=== PATIENT | female | born 1960 | race Caucasian/White ===

== ENCOUNTER 2018-06-18 11:20 | Emergency (ER) | payer OTHER ==
[~2018-06-18] VITALS: Ht 172.7 cm; Wt 109.0 kg
[~2018-06-18 11:20] MED LIST: GABA100C PO
--- NOTE | 2018-06-18 11:24 | NUR ---
PT BIBA ALS TO ER BED 05 Addendum: 06/18/18 at 2108 by STEPHANIE Amendment susan in ED - 06/18/18 at [address] FREIRE SPEAKING WITH PT VIA REMOTE COMMUNICATION
--- NOTE | 2018-06-18 11:30 | NUR ---
PT BIB AMBULANCE TO THE ED WITH THE CHIEF C/O SUICIDAL IDEATION, 5150. + ETOH. PER AMBULANCE PERSON, PT WAS HARRASHING FAMILY MEMBER, STATED SHE WANYS TO HURT HERSELF. FAMILY CALLED POLICE. [place] [employer] IN CASE. PER AMBULANCE PERSONNEL, PT IS NOT TAKING ANY MEDS AT HOME. JANENE, SEVERIANOT
[2018-06-18 11:31] VITALS: BP_SYST 163; BP_SYST 168; BP_DIAS 127; BP_DIAS 98
[2018-06-18] MEDS ORDERED: NACL 0.9% 1,000 ML IV ONE (11:51)
[2018-06-18] MEDS ORDERED: LORazepam 2 MG/ML VIAL IM ONE (11:55)
[2018-06-18] MEDS ORDERED: diphenhydrAMINE 50 MG/ML VIAL IM ONE (11:55)
[2018-06-18] MEDS ORDERED: HALOPERIDOL IM 5 MG/ML VIAL IM ONE (11:55)
[2018-06-18 12:56] LABS: BASOPHILS % (AUTO) 0.4 % (0.0-2.0); EOSINOPHILS # (AUTO) 0.1 K/uL (0-0.4); EOSINOPHILS % (AUTO) 1.4 % (0.0-4.0); HEMOGLOBIN 15.6 g/dL (12.0-16.0); LYMPHOCYTES # (AUTO) 3.3 K/uL (2.5-16.5); LYMPHOCYTES % (AUTO) 38.6 % (20.5-51.1); MEAN CORPUSCULAR HEMOGLOBIN 31 pg (27-31); MEAN CORPUSCULAR HGB CONC 35 g/dL (33-37); MEAN CORPUSCULAR VOLUME 88.6 fL (80-94); MONOCYTES # (AUTO) 0.5 K/uL (0.8-1.0); MONOCYTES % (AUTO) 6.3 % (1.7-9.3); NEUTROPHILS # (AUTO) 4.6 K/uL (1.8-7.7); NEUTROPHILS % (AUTO) 53.3 % (42.2-75.2); PLATELET COUNT (AUTO) 254 K/uL (140-450); RED BLOOD CELL COUNT(AUTO) 5.08 MIL/uL (4.20-5.40); RED CELL DISTRIBUTION WIDTH 13.4 % (11.6-13.7); WHITE BLOOD COUNT (AUTO) 8.6 K/uL (4.8-10.8)
--- NOTE | 2018-06-18 13:08 | NUR ---
PT CALM, SEDATED.
--- NOTE | 2018-06-18 13:09 | NUR ---
PT TOO SEDATED TO DO PO CHALLENGE.
[2018-06-18] MEDS ORDERED: DEXTROSE 50% 50 ML SYR IVP ONE (13:55)
--- NOTE | 2018-06-18 14:00 | NUR ---
CONTINUE ON 1:1 SITTER.
[2018-06-18 14:15] LABS: APPEARANCE,URINE HAZY (CLEAR); BILIRUBIN,URINE NEGATIVE (NEGATIVE); BLOOD, URINE NEGATIVE (NEGATIVE); COLOR,URINE YELLOW (YELLOW); LEUKOCYTE ESTERASE ,URINE NEGATIVE (NEGATIVE); NITRITE, URINE NEGATIVE (NEGATIVE); UGLUCOSE NEGATIVE (NEGATIVE)
[2018-06-18 14:36] LABS: BARBITURATE, URINE NEG. ng/ml (NEG <=200); BENZODIAZEPINE, URINE NEG. ng/mL (NEG <=200); CANNABINOID, URINE POS. ng/mL (NEG <=50); COCAINE, URINE NEG. ng/mL (NEG <=300); OPIATE, URINE NEG. ng/mL (NEG <=2000); PHENCYCLIDINE SCREEN,URINE NEG. ng/mL (NEG <=25)
[2018-06-18 17:36] LABS: ALBUMIN 3.9 g/dL (3.4-5.0); ANION GAP 24.5 (8-16); ASPARTATE AMINOTRANSFERASE 17 U/L (15-37); CARBON DIOXIDE 17.7 mmol/L (21-32); CHLORIDE 107 mmol/L (98-107); CREATININE 0.9 mg/dL (0.6-1.3); GFR ARICAN-AMERICAN 83 mL/min (>90); GLUCOSE 88 mg/dL (74-106); POTASSIUM 3.2 mmol/L (3.5-5.1); SALICYLATE < 2.8 mg/dL (2.8-20.0); SODIUM SERUM 146 mmol/L (136-145); TOTAL BILIRUBIN 0.5 mg/dL (0.0-1.0); UREA NITROGEN, BLOOD 13 mg/dL (7-18)
--- NOTE | 2018-06-18 17:50 | NUR ---
SLEEPING AT THIS TIME.
--- NOTE | 2018-06-18 18:14 | NUR ---
PT AWAKE. A/O X4. AMBULATED TO RESTROOM. ASSISTED NEEDED.
--- NOTE | 2018-06-18 18:16 | NUR ---
TELEPSYCH INITIATED PER DR. DONNELLY
--- NOTE | 2018-06-18 18:17 | NUR ---
SITTING IN BED, EATING AT THIS TIME.
--- NOTE | 2018-06-18 19:20 | NUR ---
REPROT GIVEN TO DIET CONSULTANT RN FOR CONTINUITY OF CARE.
--- NOTE | 2018-06-18 19:21 | NUR ---
RECEIVED REPORT FROM AM SHIFT. WILL CONTINUE CONTINUITY OF CARE.
[2018-06-18 20:43] VITALS: BP 122/59
--- NOTE | 2018-06-18 21:05 | NUR ---
TELEPSYCH DR. FRERIE SPEAKING WITH BRANNON DEE
--- NOTE | 2018-06-18 21:08 | NUR ---
TELEPSYCH DR. FREIRE SPEAKING WITH PT VIA REMOTE COMMUNICATION
--- NOTE | 2018-06-18 21:28 | NUR ---
Melida davis in [facility] - 06/18/18 at [address] FREIRE SPEAKING WITH PT VIA REMOTE COMMUNICATION
--- NOTE | 2018-06-18 21:31 | NUR ---
TELEPSYCH DOCTOR SPOKE WITH BRANNON DEE
--- NOTE | 2018-06-18 22:05 | NUR ---
Patient discharged with v/s stable. Written and verbal after care instructions given and explained. Patient verbalized understanding. Ambulatory with steady gait. All questions addressed prior to discharge. Advised to follow up with PMD.
--- NOTE | 2018-06-21 09:23 | NUR ---
Late entry. Confirmed with RN that 0.9 NS at 100 ml/hr infused until 2200
--- NOTE | 2018-06-21 09:24 | NUR ---
Late entry. Reeval time for 0.9 NS that started at 1502 was 1526.
== END 2018-06-18 22:05 | disposition home or self-care (01) ==
LOC: MED 11:20
DX: F10.129 Alcohol abuse with intoxication, unspecified (principal); R45.1 Restlessness and agitation; F23 Brief psychotic disorder; F12.10 Cannabis abuse, uncomplicated; F15.10 Other stimulant abuse, uncomplicated; R45.851 Suicidal ideations; G40.909 Epilepsy, unspecified, not intractable, without status epilepticus; I10 Essential (primary) hypertension; Z88.1 Allergy status to other antibiotic agents; Z79.899 Other long term (current) drug therapy; Z02.89 Encounter for other administrative examinations
CPT/HCPCS: 36415; 71045; 80053; 80305; 81003; 82550; 84484; 85025; 96372; 96374; 99285; G0480; G0482; J1200; J1630; J2060; J7030; Q0092

== ENCOUNTER 2019-01-19 09:35 | Emergency (ER) | payer SELFPAY ==
[~2019-01-19] VITALS: Ht 165.1 cm; Wt 68.0 kg
[2019-01-19 09:41] VITALS: BP 139/97
[2019-01-19] MEDS ORDERED: IBUPROFEN 600 MG TAB PO ONE (10:00)
[2019-01-19 10:48] VITALS: BP 139/97
== END 2019-01-19 10:48 | disposition home or self-care (01) ==
LOC: MED 09:35
DX: S93.401A Sprain of unspecified ligament of right ankle, initial encounter (principal); I10 Essential (primary) hypertension; Z86.69 Personal history of other diseases of the nervous system and sense organs; Z79.899 Other long term (current) drug therapy; Z88.1 Allergy status to other antibiotic agents; W18.39XA Other fall on same level, initial encounter; Y92.89 Other specified places as the place of occurrence of the external cause; Y93.89 Activity, other specified; Y99.8 Other external cause status
CPT/HCPCS: 73610; 73630; 99283

== ENCOUNTER 2019-08-16 23:55 | Emergency (ER) | payer SELFPAY ==
[~2019-08-16] VITALS: Ht 167.6 cm; Wt 77.1 kg
--- NOTE | 2019-08-17 | NUR ---
PT TRANSPORTED TO BED 9 VIA [facility].
[2019-08-17 00:06] VITALS: BP 148/88
--- NOTE | 2019-08-17 00:15 | NUR ---
PT STARTED ON FLAGYL IVPB ON RT AC. TOLERATED WELL NADR
[2019-08-17] MEDS ORDERED: metroNIDAZOLE 500 MG/NS PREMIX 100 ML IV ONE (00:30)
[2019-08-17] MEDS ORDERED: LEVOFLOXACIN 500 MG/D5W PREMIX 100 ML IV ONE (00:30)
--- NOTE | 2019-08-17 00:41 | NUR ---
PER PT THEY CANNOT GIVE ANY URINE AT THIS TIME. STATES " I DO NOT HAVE TO GO RIGHT NOW"
--- NOTE | 2019-08-17 00:42 | NUR ---
PT PLACED ON 3L N/C FOR SATS OF 90-92%
--- NOTE | 2019-08-17 00:42 | NUR ---
PER PT, " I DO NOT WANT TO PUT ON A GOWN, I'D RATHER NOT"
--- NOTE | 2019-08-17 00:55 | NUR ---
59F PRESENTS TO ED VIA AMBULANCE C/O FEVER, COUGH, N/V/D X 1 WEEK. pt states that niece presents with the same symptoms and has been tested here at [facility]. has not gotten the results back. family at home presents with same symptoms as the pt. bowel sounds hyperactive, abdoment soft and non-tender. pt states having one episode of epilepsy x today. pmhx: epilepsy, HTN, appendectomy, btl, cholecystectomy, ovarian cyst allx: erythromycin
[2019-08-17 00:59] LABS: BASOPHILS % (AUTO) 0.6 % (0.0-2.0); HEMATOCRIT 43.6 % (36-48); HEMOGLOBIN 15.1 g/dL (12.0-16.0); LYMPHOCYTES # (AUTO) 1.2 K/uL (2.5-16.5); LYMPHOCYTES % (AUTO) 21.7 % (20.5-51.1); MEAN CORPUSCULAR HEMOGLOBIN 31 pg (27-31); MEAN CORPUSCULAR HGB CONC 35 g/dL (33-37); MEAN CORPUSCULAR VOLUME 88.3 fL (80-94); MONOCYTES # (AUTO) 0.5 K/uL (0.8-1.0); MONOCYTES % (AUTO) 8.6 % (1.7-9.3); NEUTROPHILS # (AUTO) 3.9 K/uL (1.8-7.7); NEUTROPHILS % (AUTO) 69.1 % (42.2-75.2); PLATELET COUNT (AUTO) 182 K/uL (140-450); RED BLOOD CELL COUNT(AUTO) 4.94 MIL/uL (4.20-5.40); RED CELL DISTRIBUTION WIDTH 12.4 % (11.6-13.7); WHITE BLOOD COUNT (AUTO) 5.6 K/uL (4.8-10.8)
[2019-08-17 01:13] LABS: BILIRUBIN,URINE 1+ (NEGATIVE); BLOOD, URINE NEGATIVE (NEGATIVE); COLOR,URINE YELLOW (YELLOW); LEUKOCYTE ESTERASE ,URINE NEGATIVE (NEGATIVE); NITRITE, URINE POSITIVE (NEGATIVE); UGLUCOSE NEGATIVE (NEGATIVE)
[2019-08-17 01:17] LABS: ALBUMIN 3.3 g/dL (3.4-5.0); ANION GAP 14.1 (8-16); CARBON DIOXIDE 28.5 mmol/L (21-32); TOTAL BILIRUBIN 0.7 mg/dL (0.0-1.0)
[2019-08-17 01:19] LABS: POTASSIUM 2.6 mmol/L (3.5-5.1)
[2019-08-17] MEDS ORDERED: POTASSIUM CHLORIDE 10 MEQ TABER PO ONE ×2 (01:21→01:30)
[2019-08-17 01:31] LABS: APPEARANCE,URINE HAZY (CLEAR)
[2019-08-17 01:32] LABS: RBC,URINE 0-5 /HPF (0-5)
--- NOTE | 2019-08-17 01:35 | NUR ---
PT STARTED ON LEVAQUINN IVPB ON LT AC TOLERATED WELL. NADR
--- NOTE | 2019-08-17 01:47 | NUR ---
CRITICAL LAB VALUE POTASSIUM 2.6. DR CHANEY NOTIFIED. ADVISED 40MEQ KDUR
--- NOTE | 2019-08-17 01:59 | NUR ---
gave pt's son a call for rock picker when pt is d/c name: giovanni number: son states they live 2 miles away
--- NOTE | 2019-08-17 02:00 | NUR ---
flagyl infusion finished. nadr
[2019-08-17 02:21] VITALS: BP 148/88
--- NOTE | 2019-08-17 02:21 | NUR ---
Patient discharged with v/s stable. Written and verbal after care instructions given and explained. Patient alert, oriented and verbalized understanding of instructions. Ambulatory with steady gait. All questions addressed prior to discharge. ID band removed. Patient advised to follow up with PMD. Rx of CIPROFLOXACIN given. Patient educated on indication of medication including possible reaction and side effects. Opportunity to ask questions provided and answered.
--- NOTE | 2019-08-19 16:10 | NUR ---
CALLED AND SPOKE WITH HOLLEY (PATIENT) [phone] INSTRUCTED HER THAT SHE IS TO BE STARTED ON ANOTHER PRESCRIPTION IN ADDITION TO HER CURRENT ANTIBIOTICS
--- NOTE | 2019-08-19 16:20 | NUR ---
PRESCRIPTION CALLED TO [facility] [phone] BACTRIM DS 1 TAB PO BID X 7 DAYS
== END 2019-08-17 02:21 | disposition home or self-care (01) ==
LOC: MED 23:55
DX: K52.9 Noninfective gastroenteritis and colitis, unspecified (principal); N39.0 Urinary tract infection, site not specified; I10 Essential (primary) hypertension; F17.200 Nicotine dependence, unspecified, uncomplicated; Z88.1 Allergy status to other antibiotic agents; Z79.899 Other long term (current) drug therapy
CPT/HCPCS: 36415; 80053; 81001; 82150; 83690; 85025; 87086; 87186; 96365; 96366; 96368; 99284; J1956; J3490

== ENCOUNTER 2019-08-18 13:41 | Emergency (ER) | payer MEDICAID, SELFPAY ==
[~2019-08-18] VITALS: Ht 172.7 cm; Wt 77.1 kg
[2019-08-18 14:10] VITALS: BP 117/73
--- NOTE | 2019-08-18 14:11 | NUR ---
PT AMBULATED TO BED.
--- NOTE | 2019-08-18 14:16 | NUR ---
C/O FLANK PAIN, CHEST PAIN, BODY ACHES, NAUSEA. PT STATES SHE CAME HERE [facility] AND WAS GIVEN ANTIBX (SHE DOES NOT KNOW WHY) AND STATES "I DONT FEEL ANY BETTER". PT AWAKE , ALERT, AFIBRILE, DENIES N/V .
--- NOTE | 2019-08-18 14:33 | NUR ---
Dr. La evaluating pt at bedside
[2019-08-18] MEDS ORDERED: KETOROLAC 30 MG/ML VIAL IVP ONE (14:35)
[2019-08-18] MEDS ORDERED: NACL 0.9% 1,000 ML IV ONE (14:35)
--- NOTE | 2019-08-18 14:35 | NUR ---
DR FORD AT BEDSIDE EVALUATING PT.
[2019-08-18 15:08] LABS: BASOPHILS % (AUTO) 0.5 % (0.0-2.0); EOSINOPHILS % (AUTO) 0.1 % (0.0-4.0); HEMATOCRIT 46.3 % (36-48); HEMOGLOBIN 15.9 g/dL (12.0-16.0); LYMPHOCYTES # (AUTO) 1.2 K/uL (2.5-16.5); LYMPHOCYTES % (AUTO) 20.2 % (20.5-51.1); MEAN CORPUSCULAR HEMOGLOBIN 31 pg (27-31); MEAN CORPUSCULAR HGB CONC 35 g/dL (33-37); MEAN CORPUSCULAR VOLUME 88.4 fL (80-94); MONOCYTES # (AUTO) 0.5 K/uL (0.8-1.0); NEUTROPHILS # (AUTO) 4.4 K/uL (1.8-7.7); NEUTROPHILS % (AUTO) 71.2 % (42.2-75.2); PLATELET COUNT (AUTO) 211 K/uL (140-450); RED BLOOD CELL COUNT(AUTO) 5.23 MIL/uL (4.20-5.40); RED CELL DISTRIBUTION WIDTH 12.6 % (11.6-13.7); WHITE BLOOD COUNT (AUTO) 6.2 K/uL (4.8-10.8)
--- NOTE | 2019-08-18 15:14 | NUR ---
pt to ctscan via wheel chair.
--- NOTE | 2019-08-18 15:19 | NUR ---
pt back from ct scan via wheelchair.
[2019-08-18 15:27] LABS: ALBUMIN 3.3 g/dL (3.4-5.0); ANION GAP 10.2 (8-16); CARBON DIOXIDE 31.9 mmol/L (21-32); CREATININE 1.2 mg/dL (0.6-1.3); POTASSIUM 3.1 mmol/L (3.5-5.1); TOTAL BILIRUBIN 0.9 mg/dL (0.0-1.0)
[2019-08-18 15:30] LABS: APPEARANCE,URINE HAZY (CLEAR); BILIRUBIN,URINE 1+ (NEGATIVE); BLOOD, URINE NEGATIVE (NEGATIVE); COLOR,URINE YELLOW (YELLOW); LEUKOCYTE ESTERASE ,URINE NEGATIVE (NEGATIVE); NITRITE, URINE NEGATIVE (NEGATIVE); UGLUCOSE NEGATIVE (NEGATIVE)
[2019-08-18 15:43] LABS: BARBITURATE, URINE NEGATIVE ng/ml (NEG <=200); BENZODIAZEPINE, URINE NEGATIVE ng/mL (NEG <=200); CANNABINOID, URINE POSITIVE ng/mL (NEG <=50); COCAINE, URINE NEGATIVE ng/mL (NEG <=300); OPIATE, URINE NEGATIVE ng/mL (NEG <=2000); PHENCYCLIDINE SCREEN,URINE NEGATIVE ng/mL (NEG <=25)
[2019-08-18] MEDS ORDERED: PIPERACILLIN/TAZOBACTAM 3.375 GM in DEXTROSE 5% 50 ML IV ONE (15:45)
[2019-08-18] MEDS ORDERED: PIPERACILLIN/TAZOBACTAM 3.375 GM VIAL IV ONE (15:48)
[2019-08-18] MEDS ORDERED: POTASSIUM CHLORIDE 10 MEQ TABER PO ONE (16:10)
--- NOTE | 2019-08-18 16:10 | NUR ---
COVID 19 SWAB AND INFLUENZA A AND B DONE. DR FORD INFORMEDE AND AWARE.
--- NOTE | 2019-08-18 16:15 | NUR ---
Melida davis in [facility] - 08/18/19 at 1623 by MEDCRUZ BRANNON FERNANDESS.
--- NOTE | 2019-08-18 16:15 | NUR ---
BRANNON FOX ADMINISTERED MEDS.
--- NOTE | 2019-08-18 17:40 | NUR ---
Patient discharged with v/s stable. Written and verbal after care instructions given and explained regarding pneumonia . Patient alert, oriented and verbalized understanding of instructions. Ambulatory with steady gait. All questions addressed prior to discharge. ID band removed. Patient advised to follow up with PMD. Rx of azithromycin given. Patient educated on indication of medication including possible reaction and side effects. Opportunity to ask questions provided and answered.
[2019-08-18 17:42] VITALS: BP 120/75
--- NOTE | 2019-08-20 21:00 | NUR ---
RECIEVED CALL FROM THE LAB, PT IS POSITIVE FOR COV2- ERMD DR FRENCH MADE AWARE AND HE DID SIGN THE RESULT. PT COVID RESULT WILL FORWARD TO THE MANAGER PACKAGING AND TAMMY GUTHRIE.
== END 2019-08-18 17:40 | disposition home or self-care (01) ==
LOC: EEVIPCON 13:41 → MED 13:41
DX: J18.9 Pneumonia, unspecified organism (principal); E87.6 Hypokalemia; F19.10 Other psychoactive substance abuse, uncomplicated; I10 Essential (primary) hypertension; R56.9 Unspecified convulsions; Z88.1 Allergy status to other antibiotic agents; Z79.899 Other long term (current) drug therapy; Z20.828 Contact with and (suspected) exposure to other viral communicable diseases
CPT/HCPCS: 36415; 71045; 74176; 80053; 80305; 81003; 83605; 83690; 83880; 84484; 85025; 87040; 87086; 87804; 93005; 96365; 96375; 99285; C9803; J1885; J2543; J7030; U0003

== ENCOUNTER 2019-08-23 14:32 | Inpatient (IN) | payer MEDICAID, SELFPAY ==
[~2019-08-23] VITALS: Ht 167.6 cm; Wt 68.5 kg
[2019-08-23 14:35] VITALS: BP 122/90
--- NOTE | 2019-08-23 15:10 | NUR ---
59 Y/O F BIBA FROM HOME C/C SOB/HEADACHE X 3 DAYS. PER PT SOB PROGRESSIVELY WORSE WITH MOVEMENT, AND ALLEVIATING WITH REST, PT 93% RA AT REST WITH NORMAL TIDAL VOLUME, SHALLOW RESPIRATIONS, EUPNIC, NO RESPIRATORY DISTRESS NOTED, MENTATION A/OX4, CLEAR SPEECH. PER PT "DIFFICULTY GASPING FOR AIR, CATCH MY BREATH". PT COVID POSITIVE CONFIRMED. PT PLACED ON 4L NC, 100%SPO2. ALLERGIES ERYTHROMYCIN. HX EPILEPSY,HTN. PT NON COMPLIANT WITH MEDICATIONS, PER PT "DOES NOT LIKE TAKING PILLS". DENIES NVD. SIDE RAIL X2.
--- NOTE | 2019-08-23 15:10 | NUR ---
[facility] FOLLOWED PT ENTERED ER WITH MASK PT PLACED IN ISOLATION COVID ROOM COVID SIGN / SIGN IN SHEET AT BEDSIDE RN FULL PPE
--- NOTE | 2019-08-23 15:22 | NUR ---
RT AT BEDSIDE
--- NOTE | 2019-08-23 15:22 | NUR ---
RAD AT BEDSIDE
--- NOTE | 2019-08-23 15:22 | NUR ---
LAB AT BEDSIDE
--- NOTE | 2019-08-23 15:49 | NUR ---
PT RESTING IN BED, NO RESPIRATORY DISTRESS. PT EUPNIC. SIDE RAIL X2.
--- NOTE | 2019-08-23 16:00 | NUR ---
PT UNABLE TO PROVIDE URINE AT THIS TIME PER PT WENT TO RESTROOM BEFORE COMING TO ER PROVIDED GARRICK SANABRIA
[2019-08-23 16:03] LABS: BASOPHILS % (AUTO) 0.5 % (0.0-2.0); EOSINOPHILS # (AUTO) 0.2 K/uL (0-0.4); EOSINOPHILS % (AUTO) 2.4 % (0.0-4.0); HEMATOCRIT 41.2 % (36-48); HEMOGLOBIN 14.3 g/dL (12.0-16.0); LYMPHOCYTES # (AUTO) 1.5 K/uL (2.5-16.5); LYMPHOCYTES % (AUTO) 22.9 % (20.5-51.1); MEAN CORPUSCULAR HEMOGLOBIN 30 pg (27-31); MEAN CORPUSCULAR HGB CONC 35 g/dL (33-37); MEAN CORPUSCULAR VOLUME 87.4 fL (80-94); MONOCYTES # (AUTO) 0.7 K/uL (0.8-1.0); MONOCYTES % (AUTO) 10.5 % (1.7-9.3); NEUTROPHILS # (AUTO) 4.2 K/uL (1.8-7.7); NEUTROPHILS % (AUTO) 63.7 % (42.2-75.2); PLATELET COUNT (AUTO) 320 K/uL (140-450); RED BLOOD CELL COUNT(AUTO) 4.72 MIL/uL (4.20-5.40); RED CELL DISTRIBUTION WIDTH 12.4 % (11.6-13.7); WHITE BLOOD COUNT (AUTO) 6.6 K/uL (4.8-10.8)
--- NOTE | 2019-08-23 16:21 | NUR ---
PT RESTING IN BED, SIDE RAIL X2
[2019-08-23 16:22] LABS: PROTHROMBIN TIME 10.5 secs (10.8-13.4)
[2019-08-23 16:23] LABS: ALBUMIN 2.8 g/dL (3.4-5.0); ANION GAP 11.1 (8-16); CARBON DIOXIDE 25.4 mmol/L (21-32); CREATININE 0.9 mg/dL (0.6-1.3); POTASSIUM 3.5 mmol/L (3.5-5.1); TOTAL BILIRUBIN 0.8 mg/dL (0.0-1.0)
[2019-08-23] MEDS ORDERED: PIPERACILLIN/TAZOBACTAM 3.375 GM in DEXTROSE 5% 50 ML IV ONE (16:30)
[2019-08-23] MEDS ORDERED: PIPERACILLIN/TAZOBACTAM 3.375 GM VIAL IV ONE (16:32)
[2019-08-23] MEDS ORDERED: ACETAMINOPHEN 325 MG TAB PO PRN (16:50)
[2019-08-23] MEDS ORDERED: ONDANSETRON 4 MG/2 ML VIAL IM/IVP PRN (16:50)
[2019-08-23] MEDS ORDERED: DOCUSATE SODIUM 100 MG GELCAP PO PRN (16:50)
[2019-08-23] MEDS ORDERED: MORPHINE SULFATE 2 MG/ML SYR IVP PRN (16:50)
[2019-08-23] MEDS ORDERED: HYDROcodone/APAP 7.5/325 MG 1 TAB PO PRN (16:50)
[2019-08-23] MEDS ORDERED: ALBUTEROL HFA MDI 90 MCG/ACTUATION 8 GM INH PRN (16:55)
[2019-08-23 17:36] LABS: PHOSPHORUS 3.4 mg/dL (2.5-4.9); THYROID STIMULATING HORMONE 0.91 uIU/mL (0.34-3.74)
--- NOTE | 2019-08-23 17:43 | NUR ---
URINE COLLECTED ; PLACED IN RED BOX IN DIRTY UTILITY ROOM
--- NOTE | 2019-08-23 17:45 | NUR ---
SPOKE TO PHARMACIST SHEILA IN REGARDS OF PT REACTION TO ERYTHROMYCIN: N/V
--- NOTE | 2019-08-23 17:47 | NUR ---
NAME OF SON: VILLA HERNANDEZ PHONE: [phone]
--- NOTE | 2019-08-23 18:10 | NUR ---
RECEIVED PT FROM THE ED RNPANCHO. PT IS AAOX4, SPEAKS SAO TOMEAN, ABLE TO MAKE NEEDS KNOWN. PT IS AWAKE AND ALERT, SITTING IN BED WITH NO SIGN AND SYMPTOMS OF ACUTE DISTRESS. RESPIRATION EVEN AND NONLABORED ON RA. PT HAS IV ACCESS AT LEFT HAND 20 GAUGE, SALINE LOCKED, CLEAN, AND INTACT. SKIN IS INTACT AND DRY TO TOUCH. BED IN LOW POSITION, BED LOCKED, IN LOW POSITION. ORIENTED PT TO ROOM, INSTRUCTED PT ON HOW TO USE CALL LIGHT. SAFETY MEASURES IN PLACE. CALL LIGHT WITHIN PT'S REACH. TELE MONITOR ATTACH. WILL CONTINUE TO MONITOR PATIENT.
--- NOTE | 2019-08-23 18:11 | NUR ---
Patient will be admitted to care of [facility]. Admited to TELEMETRY. Will go to room 128A. Belongings list completed. Report to ZACHARIAH SOUTH.
--- NOTE | 2019-08-23 18:15 | NUR ---
APPLIED TELE MONITOR AND APPLIED NC AND ADJUSTED TO 4 LPM VIA NC. VITAL SIGNS TAKEN; BP 110/80, PULSE 80, RR 18, SPO2 97%, DENIED PAIN, SOB AND DIZZINESS.
[2019-08-23] MEDS: NACL 0.9% 1,000 ML IV SCH (18:19)
[2019-08-23] MEDS: AZITHROMYCIN 500 MG in DEXTROSE 5% 250 ML IV SCH (18:19)
--- NOTE | 2019-08-23 18:20 | NUR ---
STARTED IV FLUID NS AT 100ML/HR. ADMINISTERED ANTIBIOTIC MD ORDERED. MED EDUCATION PROVIDED. PT VERBALIZED UNDERSTANDING. MRSA NARES COLLECTED. TELE MONITOR ATTACHED. CALL LIGHT WITHIN REACH. SAFETY MEASURE IN PLACE.
[2019-08-23 18:40] LABS: APPEARANCE,URINE CLEAR (CLEAR); BILIRUBIN,URINE 1+ (NEGATIVE); BLOOD, URINE NEGATIVE (NEGATIVE); COLOR,URINE ORANGE (YELLOW); LEUKOCYTE ESTERASE ,URINE NEGATIVE (NEGATIVE); NITRITE, URINE NEGATIVE (NEGATIVE); PH,URINE 5.5 (5.0-9.0); UGLUCOSE NEGATIVE (NEGATIVE)
--- NOTE | 2019-08-23 19:25 | NUR ---
ENDORSED PT AT WINDOW-SIDE TO GAS WELDER APPRENTICE NURSE FOR CONTINUITY OF CARE. PT IS IN STABLE CONDITION. TELE MONITOR ATTACHED.
--- NOTE | 2019-08-23 19:29 | NUR ---
RECEIVED REPORT FROM DAY RN REGARDING THE PATIENT. PATIENT ASLEEP DURING SHIFT CHANGE. NO SIGN AND SYMPTOMS OF DISTRESS NOTED AT THIS TIME. PT ON TELE MONITOR. BED IN LOW POSITION.CALL LIGHT WITHIN REACH. WILL CONTINUE PLAN OF CARE AND MONITORING.
[2019-08-23 20:00] VITALS: BP 104/49
[2019-08-23 21:15] LABS: BARBITURATE, URINE NEGATIVE ng/ml (NEG <=200); BENZODIAZEPINE, URINE POSITIVE ng/mL (NEG <=200); CANNABINOID, URINE POSITIVE ng/mL (NEG <=50); COCAINE, URINE NEGATIVE ng/mL (NEG <=300); OPIATE, URINE NEGATIVE ng/mL (NEG <=2000); PHENCYCLIDINE SCREEN,URINE NEGATIVE ng/mL (NEG <=25)
--- NOTE | 2019-08-23 21:30 | NUR ---
PATIENT SLEEPS OFF AND ON. WALKED TO THE BATHROOM AND TOLERATED IT WELL. NO C/O SOB OR CHEST PAIN. IV ANTIBIOTIC GIVEN EARLIER AND TOLERATED IT WELL. NO REACTION NOTED. CALL LIGHT WITHIN REACH. WILL CONTINUE POC AND MONITORING.
--- NOTE | 2019-08-23 23:30 | NUR ---
PT SLEEPING AT THIS TIME. CALL LIGHT WITHIN REACH.WILL CONTINUE POC AND MONITORING.
[2019-08-24] VITALS: BP 126/77
--- NOTE | 2019-08-24 01:30 | NUR ---
PT STILL ASLEEP. NO S/S OF DISTRESS NOTED. WILL CONTINUE MONITORING AND POC.
[2019-08-24] MEDS: NACL 0.9% 1,000 ML IV SCH ×3 (02:48→16:51)
--- NOTE | 2019-08-24 03:45 | NUR ---
PT WOKE UP AND ASKED FOR POPSICLE. GIVEN PER PT REQUEST.
[2019-08-24 04:00] VITALS: BP 105/58
--- NOTE | 2019-08-24 05:00 | NUR ---
PT ASLEEP AND RESTING COMFORTABLY. NOT IN DISTRESS. CALL LIGHT WITHIN REACH. WILL CONTINUE POC.
[2019-08-24 05:50] LABS: BASOPHILS % (AUTO) 0.6 % (0.0-2.0); EOSINOPHILS # (AUTO) 0.2 K/uL (0-0.4); EOSINOPHILS % (AUTO) 2.8 % (0.0-4.0); HEMATOCRIT 40.4 % (36-48); HEMOGLOBIN 13.8 g/dL (12.0-16.0); LYMPHOCYTES % (AUTO) 29.8 % (20.5-51.1); MEAN CORPUSCULAR HEMOGLOBIN 30 pg (27-31); MEAN CORPUSCULAR HGB CONC 34 g/dL (33-37); MEAN CORPUSCULAR VOLUME 88.8 fL (80-94); MONOCYTES # (AUTO) 0.7 K/uL (0.8-1.0); MONOCYTES % (AUTO) 10.8 % (1.7-9.3); NEUTROPHILS # (AUTO) 3.7 K/uL (1.8-7.7); PLATELET COUNT (AUTO) 299 K/uL (140-450); RED BLOOD CELL COUNT(AUTO) 4.55 MIL/uL (4.20-5.40); RED CELL DISTRIBUTION WIDTH 12.4 % (11.6-13.7); WHITE BLOOD COUNT (AUTO) 6.5 K/uL (4.8-10.8)
[2019-08-24 06:16] LABS: PHOSPHORUS 3.2 mg/dL (2.5-4.9)
[2019-08-24 06:17] LABS: CHOL/HDL RATIO 3.9 (1-4.5)
--- NOTE | 2019-08-24 07:00 | NUR ---
RECEIVED REPORT FROM NIGHT NURSE FOR CONTINUITY OF CARE, PT IS STABLE, AAOX4, RESPIRATIONS ARE EVEN AND UNLABORED ON 4L NC, PT RESTING IN BED, NO SIGNS OF DISTRESS NOTED, PT HAS LH 20G INFUSING NORMAL SALINE AT 100 L/H. SKIN INTACT, SEIZURE PRECAUTIONS IN PLACE, BED IN LOW POSITIONS, SAFETY MEASURES IN PLACE, ALL NEEDS MET AT THIS TIME, WILL CONTINUE TO MONITOR, CALL LIGHT WITHIN REACH.
--- NOTE | 2019-08-24 07:47 | NUR ---
PATIENT HAS BEEN SCREENED AND CATEGORIZED MODERATE NUTRITION RISK. PATIENT WILL BE SEEN WITHIN 3-5 DAYS OF ADMISSION. 08/26/19 08/28/[address]
[2019-08-24 08:00] VITALS: BP 116/66
[2019-08-24] MEDS: ENOXAPARIN 40 MG/0.4 ML SYR SUBQ SCH (08:54)
[2019-08-24] MEDS: ZINC SULF 220 MG CAP PO SCH (08:56)
--- NOTE | 2019-08-24 08:56 | NUR ---
ADMINISTERED SCHEDULED MEDICATION, MEDICATION EDUCATION GIVEN, PT VERBALIZED UNDERSTANDING, PT TOLERATED MEDICATION WELL, PT IS STABLE, RESPIRATIONS ARE EVEN AND UNLABORED ON 3L NC 02, CALL LIGHT WITHIN REACH.
[2019-08-24] MEDS: CHOLECALCIFEROL 1,000 IU TAB PO SCH (08:57)
[2019-08-24] MEDS: ASCORBIC ACID 500 MG TAB PO SCH (08:58)
--- NOTE | 2019-08-24 10:31 | NUR ---
shantelle mosley will instruct pt for sputum sample
--- NOTE | 2019-08-24 11:00 | NUR ---
PT RESTING IN BED, NO SIGNS OF DISTRESS NOTED, RESPIRATIONS ARE EVEN AND UNLABORED ON 3L NASAL CANNULA OXYGEN, PT IS STABLE, CALL LIGHT WITHIN REACH.
[2019-08-24 12:00] VITALS: BP 99/46
--- NOTE | 2019-08-24 13:39 | NUR ---
PT IS ASLEEP IN BED, RESPIRATIONS ARE EVEN AND UNLABORED ON 3L NASAL CANNULA OXYGEN, NO SIGNS OF DISTRESS NOTED, CALL LIGHT WITHIN REACH, WILL CONTINUE TO MONITOR.
--- NOTE | 2019-08-24 15:00 | NUR ---
PT ASLEEP IN BED, NO SIGNS OF DISTRESS NOTED, CALL LIGHT WITHIN REACH.
[2019-08-24 16:00] VITALS: BP 120/63
--- NOTE | 2019-08-24 17:00 | NUR ---
PT RESTING IN BED, NO SIGNS OF DISTRESS NOTED, RESPIRATIONS ARE EVEN AND UNLABORED ON 3L NASAL CANNULA, CALL LIGHT WITHIN REACH.
[2019-08-24] MEDS: AZITHROMYCIN 500 MG in DEXTROSE 5% 250 ML IV SCH (18:21)
--- NOTE | 2019-08-24 18:24 | NUR ---
ADMINISTERED SCHEDULED MEDICATION, PT ASLEEP, PT TOLERATING MEDICATION WELL, PT IS STABLE, NO SIGN OF DISTRESS NOTED, PT ON 3L NASAL CANNULA OXYGEN, CALL LIGHT WITHIN REACH.
--- NOTE | 2019-08-24 19:15 | NUR ---
GAVE REPORT TO NIGHT NURSE FOR CONTINUITY OF CARE, PT IS STABLE
--- NOTE | 2019-08-24 19:16 | NUR ---
RECEIVED REPORT FROM KRISTEN SOUTH FOR CONTINUITY OF CARE, PT IS STABLE BUT AGITATED, AAOX4. PT UPSET BECAUSE THERE IS NO SHOWER IN ROOM AND CANNOT USE THE COMMON SHOWER D/T COVID POSITIVE. EXPLAINED TO PATIENT AND WILL CHANGE BED AND GOWN AND OFFERED BED BATH PT REFUSED. RESPIRATIONS ARE EVEN AND UNLABORED ON 3L NC, PT HAS LH 20G INFUSING NORMAL SALINE AT 100 L/H. SKIN INTACT, SEIZURE PRECAUTIONS IN PLACE, BED IN LOW POSITIONS, SAFETY MEASURES IN PLACE, POC DISCUSSED WITH PT. WILL CONTINUE TO MONITOR, CALL LIGHT WITHIN REACH.
--- NOTE | 2019-08-24 19:39 | NUR ---
MEDIA COORDINATOR HELP CHANGE LINEN. IV ABX INFUSING PER ORDERS. PT THREW OUT VS MACHINE PER PT, "IM TIRED OF THE BEEPING NOISE" BROUGHT BACK IN EXPLAINED HAS TO STAY IN ROOM UNTIL IT GETS CLEANED BUT TURNED OFF. PT STATES, "I NEED SOMETHING TO PUT ME TO SLEEP OR RELAX ME OR IM GOING TO HIT SOMEONE!" EXPLAINED AGAIN HER CONDITION AND EVERYTHING BEING DONE. WILL F/U WITH MD FOR MEDICATION FOR ANXIETY. VSS. CALL LIGHT IS WITHIN REACH.
[2019-08-24 20:00] VITALS: BP 109/63
[2019-08-24] MEDS: LORazepam 2 MG/ML VIAL IVP PRN (20:26)
--- NOTE | 2019-08-24 20:26 | NUR ---
ASKED CHARGE NURSE IF PATIENT CAN SWITCH ROOM TO ONE WITH SHOWER. UNFORTUNATELY NOT AT THIS TIME. IV ON L HAND WAS ACCIDENTALLY PULLED OUT. CATH INTACT. NEW IV STARTED ON L FA 24G ON FIRST ATTEMPT. ATIVAN IV PUSH GIVEN. PT SITTING UP EATING SANDWICH. APPEARS MORE CALM.
--- NOTE | 2019-08-24 21:57 | NUR ---
PATIENT LAYING IN BED SLEEPING WITH EYES CLOSED. CHEST RISE AND FALL. CALL LIGHT IS WITHIN REACH.
--- NOTE | 2019-08-24 22:45 | NUR ---
PATIENT IS SLEEPING COMFORTABLY IN BED WITH EYES CLOSED. CHEST RISE AND FALL NOTED. SAFETY MEASURES ARE IN PLACE. WILL CONTINUE TO MONITOR.
[2019-08-25] VITALS: BP 111/64
--- NOTE | 2019-08-25 | NUR ---
VITAL SIGNS ARE STABLE. NO S/S OF DISTRESS. CALL LIGHT IS WITHIN REACH.
--- NOTE | 2019-08-25 02:00 | NUR ---
PT IS SLEEPING COMFORTABLY IN BED WITH EYES CLOSED. CHEST RISE AND FALL NOTED. ALL SAFETY MEASURES ARE IN PLACE.WILL CONTINUE TO MONITOR.
[2019-08-25 04:00] VITALS: BP 103/53
--- NOTE | 2019-08-25 04:00 | NUR ---
VITAL SIGNS ARE WITHIN NORMAL LIMITS. ALL SAFETY MEASURES ARE IN PLACE. WILL CONTINUE TO MONITOR.
[2019-08-25] MEDS: NACL 0.9% 1,000 ML IV SCH ×2 (06:58→18:48)
--- NOTE | 2019-08-25 07:14 | NUR ---
RECEIVED REPORT FROM SUMMER INTERN RN FOR CONTINUITY OF CARE. PT IS AAOX4, ACTING IRRITATED. PT UPSET BECAUSE THERE IS NO SHOWER IN ROOM AND CANNOT USE THE COMMON SHOWER B/C SHE IS COVID POSITIVE. EXPLAINED TO PATIENT AND WILL CHANGE BED AND GOWN AND BED BATH HAS BEED OFFERED BUT PT REFUSING. RESPIRATIONS ARE EVEN AND UNLABORED ON 2L NC. PT HAS LH 20G INFUSING NORMAL SALINE AT 100 L/H. SKIN IS INTACT. SEIZURE PRECAUTIONS IN PLACE. ALL SAFETY MEASURES MET. BED IN LOW POSITION, CALL LIGHT WITHIN REACH. POC DISCUSSED WITH PT BUT PT IS VERY IRRITATED AND DOES NOT WANT TO SPEAK AT THIS TIME. WILL MONITOR PT CLOSELY THROUGHOUT THE SHIFT.
[2019-08-25 07:21] LABS: BASOPHILS % (AUTO) 0.7 % (0.0-2.0); EOSINOPHILS # (AUTO) 0.2 K/uL (0-0.4); EOSINOPHILS % (AUTO) 3.3 % (0.0-4.0); HEMATOCRIT 39.1 % (36-48); HEMOGLOBIN 13.3 g/dL (12.0-16.0); LYMPHOCYTES # (AUTO) 2.3 K/uL (2.5-16.5); LYMPHOCYTES % (AUTO) 35.9 % (20.5-51.1); MEAN CORPUSCULAR HEMOGLOBIN 30 pg (27-31); MEAN CORPUSCULAR HGB CONC 34 g/dL (33-37); MEAN CORPUSCULAR VOLUME 88.3 fL (80-94); MONOCYTES # (AUTO) 0.6 K/uL (0.8-1.0); MONOCYTES % (AUTO) 9.6 % (1.7-9.3); NEUTROPHILS # (AUTO) 3.2 K/uL (1.8-7.7); NEUTROPHILS % (AUTO) 50.5 % (42.2-75.2); PLATELET COUNT (AUTO) 292 K/uL (140-450); RED BLOOD CELL COUNT(AUTO) 4.42 MIL/uL (4.20-5.40); RED CELL DISTRIBUTION WIDTH 12.1 % (11.6-13.7); WHITE BLOOD COUNT (AUTO) 6.4 K/uL (4.8-10.8)
--- NOTE | 2019-08-25 07:25 | NUR ---
GAVE BEDSIDE REPORT TO DAY RN. PT ENDORSED IN STABLE CONDITION.
[2019-08-25 07:51] LABS: ALBUMIN 2.4 g/dL (3.4-5.0); ANION GAP 11.4 (8-16); CARBON DIOXIDE 27.2 mmol/L (21-32); CREATININE 0.8 mg/dL (0.6-1.3); POTASSIUM 3.6 mmol/L (3.5-5.1); TOTAL BILIRUBIN 0.4 mg/dL (0.0-1.0)
[2019-08-25 08:00] VITALS: BP 108/65
[2019-08-25] MEDS: CHOLECALCIFEROL 1,000 IU TAB PO SCH (08:45)
[2019-08-25] MEDS: ASCORBIC ACID 500 MG TAB PO SCH (08:45)
[2019-08-25] MEDS: ENOXAPARIN 40 MG/0.4 ML SYR SUBQ SCH (08:46)
[2019-08-25] MEDS: ZINC SULF 220 MG CAP PO SCH (08:46)
--- NOTE | 2019-08-25 09:36 | NUR ---
ADMINISTERED MORNING MEDS TO PT. PT TOLERATED WELL. ALL NEEDS MET. WILL CONTINUE TO ROUND FREQUENTLY ON PT.
--- NOTE | 2019-08-25 11:40 | NUR ---
PT SLEEPING. NO SIGNS OF PAIN OR DISTRESS AT THIS TIME. WILL CONTINUE TO ROUND FREQUENTLY ON PT.
--- NOTE | 2019-08-25 13:21 | NUR ---
PT RESTING IN BED. ALL NEEDS MET. WILL CONTINUE TO ROUND FREQUENTLY ON PT.
[2019-08-25] MEDS ORDERED: LORazepam 2 MG/ML VIAL IVP PRN (13:35)
--- NOTE | 2019-08-25 15:58 | NUR ---
PT REQUESTING ATIVAN FOR ANXIETY. PER OK TO GIVE. WILL ADMINISTER ATIVAN TO PT.
[2019-08-25 16:00] VITALS: BP 128/74
[2019-08-25] MEDS ORDERED: SODIUM CHLORIDE IV SCH (16:00)
[2019-08-25] MEDS ORDERED: REMDESIVIR 200 MG IV SCH (16:00)
--- NOTE | 2019-08-25 17:44 | NUR ---
RECONSTITUTED ZITHROMAX FOR PT 1800 DOSE. PER PT SHE IS ALLERGIC AND IS REFUSING IT AT THIS TIME. AWARE AND SAID TO DOCUMENT PT REFUSAL. PT IN STABLE CONDITION AT THIS TIME. WILL CONTINUE TO ROUND FREQUENTLY ON PT.
[2019-08-25] MEDS: AZITHROMYCIN 500 MG in DEXTROSE 5% 250 ML IV SCH (17:52)
--- NOTE | 2019-08-25 19:32 | NUR ---
RECEIVED REPORT FROM DAYSHIFT NURSE FOR CONTINUITY OF CARE PATIENT AWAKE IN BED NO SIGNS OF DISTRESS NOTED. TELE MONITOR ATTACHED AND CALL LIGHT WITHIN REACH IV PATENT BUT SLOW INFUSING. SAFETY MEASURES IN PLACE WILL CONTINUE TO MONITOR
--- NOTE | 2019-08-25 19:32 | NUR ---
ENDORSED PT TO OWNER PROFESSIONAL ENGINEER FOR CONTINUITY OF CARE. PT IN STABLE CONDITION AT THIS TIME.
[2019-08-25 20:00] VITALS: BP 128/72
--- NOTE | 2019-08-25 20:10 | NUR ---
ADMINISTERED 2100 MEDICATIONS TO PATIENT. PATIENT TOLERATED WELL. NO SIGNS OF DISTRESS NOTED ALL MONITORS IN PLACE AND CALL LIGHT WITHIN REACH
[2019-08-25] MEDS: LORazepam 2 MG/ML VIAL IVP PRN (20:40)
--- NOTE | 2019-08-25 20:40 | NUR ---
ADMINISTERED PRN ATIVAN PER PATIENT REQUEST FOR PATIENTS COMPLAINT OF SEVERE ANXIETY CAUSING HER TO BE EXTREMELY RESTLESS AND UNABLE TO SLEEP. PATIENT TOLERATED WELL NO SIGNS OF DISTRESS NOTED. WILL CONTINUE TO MONITOR
--- NOTE | 2019-08-25 21:05 | NUR ---
PATIENT CALLED STATING THAT SHE IS EXPERIENCING PAIN AND SOME DRIPPING FROM THE IV SITE. I WENT TO ASSESS THE PATIENT AND IV APPEARED INFILTRATED. A NEW IV SITE WAS OBTAINED. I MADE TWO ATTEMPTS THEN REQUESTED MY CHARGE NURSE FOR ASSISTANCE. A RIGHT FOREARM 24G WAS PLACED IT IS INTACT AND INFUSING.
--- NOTE | 2019-08-25 23:42 | NUR ---
ROUNDING. PATIENT RESTING NO SIGN OF DISTRESS NOTED. RESPIRATIONS EVEN AND UNLABORED ON 2L O2 VIA NC. TLE MONITOR ATTACHED AND CALL LIGHT WITHIN REACH
[2019-08-26] VITALS: BP 119/56
--- NOTE | 2019-08-26 00:32 | NUR ---
WENT TO ASSIST PATIENT WHO WAS YELLING FROM HER ROOM. PATIENT WAS OUT OF BED DROWSY AND ALMOST REMOVED IV LINE. PATIENT STATES SHE NEEDED TO USE THE RESTROOM AND PEED HERSELF. I ASSISTED THE PATIENT TO THE RESTROOM AND CLEANED UP THE URINE FROM THE GROUND AND PERFORMED A GOWN CHANGE. PATIENT PLACED BACK IN BED NO SIGNS OF DISTRESS NOTED. WILL CONTINUE TO MONITOR
--- NOTE | 2019-08-26 02:27 | NUR ---
ROUNDING, PATIENT RESTING NO SIGNS OF DISTRESS NOTED. TELE MONITOR ATTACHED AND CALL LIGHT WITHIN REACH. WILL CONTINUE TO MONITOR
[2019-08-26 04:00] VITALS: BP 104/53
[2019-08-26] MEDS: NACL 0.9% 1,000 ML IV SCH (04:48)
--- NOTE | 2019-08-26 04:50 | NUR ---
OBTAINED AM VITALS FROM PATIENT PATIENT TOLERATED WELL NO SIGNS OF DISTRESS NOTED. WILL CONTINUE TO MONITOR
--- NOTE | 2019-08-26 06:18 | NUR ---
PER AUTOMOTIVE PARTS SALESPERSON. PATIENT REFUSED TO HAVE HER AM LABS DRAWN. PATIENT EDUCATED ON REFUSAL AND STILL CHOSE TO REFUSE THE DRAW. WILL ENDORSE THE INFORMATION TO THE AM NURSE
--- NOTE | 2019-08-26 07:26 | NUR ---
ENDORSED PATIENT TO DAYSHIFT NURSE FOR CONTINUITY OF CARE. PATIENT RESTING AND IN STABLE CONDITION.
--- NOTE | 2019-08-26 07:30 | NUR ---
RECEIVED PT FROM ITEM PROCESSOR NURSEZACHARIAH, PT IS AWAKE AND LYING ON THE BED, SEEN AMBULATING TO THE BATHROOM, STEADY GAIT, IRRITABLE WHEN GREETED, IV LINE ON THE RT FA G. 24 WITH NS INFUSING AT 100ML/HR, INTACT, PT DENIES PAIN AND ON ROOM AIR, SATURATION AT 96%, NO SIGN OF DISTRESS NOTED AND WILL MONITOR PT.
[2019-08-26 08:00] VITALS: BP 108/68
[2019-08-26] MEDS: CHOLECALCIFEROL 1,000 IU TAB PO SCH (08:12)
[2019-08-26] MEDS: ZINC SULF 220 MG CAP PO SCH (08:12)
[2019-08-26] MEDS: ASCORBIC ACID 500 MG TAB PO SCH (08:12)
[2019-08-26] MEDS: ENOXAPARIN 40 MG/0.4 ML SYR SUBQ SCH (08:13)
--- NOTE | 2019-08-26 08:13 | NUR ---
NV WAS GIVEN THE SCHEDULED AM MEDICATIONS VIA ORAL AND SUB ROUTES, PT IS NOT VERY COMPLIANT AND IS IRRITABLE, TOLERATED MEDS AND WILL MONITOR PT.
--- NOTE | 2019-08-26 08:35 | NUR ---
PT WAS INFORMED AND BREAKFAST WAS SET ON TABLE AND PT VERBALIZED THAT SHE DOES NOT WANT TO EAT, TEACHING GIVEN AND WILL MONITOR PT.
[2019-08-26] MEDS ORDERED: REMDESIVIR MC SCH (09:00)
[2019-08-26] MEDS ORDERED: REMDESIVIR 100MG IV IV SCH (10:00)
--- NOTE | 2019-08-26 11:25 | NUR ---
PT COMPLAINED OF ANXIETY AND ASKS FOR AN ATIVAN AND WAS ADMINISTERED IV PUSH, BP IS 112/54, PULSE IS 71, O2 SATURATION IS AT 100% ON O2 2L NC, NO SIGN OF DISTRESS NOTED AND WILL MONITOR PT.
[2019-08-26 12:00] VITALS: BP 112/54
[2019-08-26 14:40] VITALS: BP 106/75
--- NOTE | 2019-08-26 14:40 | NUR ---
DISCHARGED PT TO HOME VIA WHEELCHAIR PICKED UP BY SON, DISCHARGED TEACHINGS REGARDING HOME ISOLATION, DIET MANAGEMENT AND NECESSARY PRECAUTION WERE GIVEN TO PT AND PT VERBALIZED UNDERSTANDING. INFORMATION HAND OUTS WERE ALSO HANDED AND EXPLAINED TO PT AND PT VERBALIZED UNDERSTANDING WELL, V/S STABLE AND PT DENIES PAIN.
[2019-08-26] MEDS ORDERED: FLUCONAZOLE 200 MG/NS PREMIX 100 ML IV SCH (15:00)
== END 2019-08-26 14:40 | disposition home or self-care (01) | DRG 137 ==
LOC: EEVIPCON 14:32 → MED 14:32 → MMU 16:48
PROVIDERS: ADMIT General Practice; ATTEND General Practice
DX: U07.1 COVID-19 (principal); J96.01 Acute respiratory failure with hypoxia; E43 Unspecified severe protein-calorie malnutrition; J12.89 Other viral pneumonia; J44.0 Chronic obstructive pulmonary disease with (acute) lower respiratory infection; F15.10 Other stimulant abuse, uncomplicated; G40.909 Epilepsy, unspecified, not intractable, without status epilepticus; I10 Essential (primary) hypertension; E87.0 Hyperosmolality and hypernatremia; F12.99 Cannabis use, unspecified with unspecified cannabis-induced disorder; Z80.7 Family history of other malignant neoplasms of lymphoid, hematopoietic and related tissues; Z88.1 Allergy status to other antibiotic agents; Z90.49 Acquired absence of other specified parts of digestive tract; Z90.710 Acquired absence of both cervix and uterus; Z68.24 Body mass index [BMI] 24.0-24.9, adult; Z91.19 Patient's noncompliance with other medical treatment and regimen
CPT/HCPCS: 36415; 36600; 71045; 80053; 80305; 81003; 82550; 82728; 82803; 83036; 83605; 83615; 83735; 84100; 84443; 84484; 85025; 85379; 85610; 85651; 85730; 86140; 87040; 87081; 87086; 93005; 96365; 96375; 99285; J0456; J0696; J1650; J2060; J2543; J7030; J7060; Q0092

== ENCOUNTER 2019-10-05 21:05 | Emergency (ER) | payer MEDICAID, SELFPAY ==
[~2019-10-05] VITALS: Ht 167.6 cm; Wt 77.1 kg
[2019-10-05] MEDS ORDERED: ZIPRASIDONE MESYLATE 20 MG/ML VIAL IM ONE ×2 (21:10→21:40)
--- NOTE | 2019-10-05 21:10 | NUR ---
PT BIBA BLS TO BED 10.
[2019-10-05] MEDS ORDERED: WATER STERILE 10 ML MC ONE ×2 (21:13→21:32)
--- NOTE | 2019-10-05 21:15 | NUR ---
59F PRESENTS TO ED BIBA FOR C/O ETOH AND ALTERED MENTAL STATUS X 6 HOURS. PT IS S/P FALL. NOTED MULTIPLE HEMATOMAS ON HEAD REGION. +HEADACHE. RR EVEN AND UNLABORED. DENIES N/V/D. BOWEL SOUNDS NORMOACTIVE ON ALL QUADRANTS. PMHX: MDD, EPILEPSY, ANXIETY, +COVID ALLX: ERITHROMYCIN.
--- NOTE | 2019-10-05 21:20 | NUR ---
PT PLACED ON SEIZURE PRECAUTIONS. CARDIAC MONITORING, PULSE OXIMETRY, BP MONITORING IN PLACE.
[2019-10-05] MEDS ORDERED: LORazepam 2 MG/ML VIAL ONE (21:29)
[2019-10-05 21:38] VITALS: BP 144/72
[2019-10-05] MEDS ORDERED: LORazepam 2 MG/ML VIAL IM ONE (21:40)
[2019-10-05] MEDS ORDERED: NACL 0.9% 1,000 ML IV ONE (21:40)
[2019-10-05 22:07] LABS: BASOPHILS # (AUTO) 0.1 K/uL (0.00-0.22); BASOPHILS % (AUTO) 0.6 % (0.0-2.0); EOSINOPHILS # (AUTO) 0.1 K/uL (0-0.4); EOSINOPHILS % (AUTO) 0.4 % (0.0-4.0); HEMATOCRIT 45.4 % (36-48); HEMOGLOBIN 15.4 g/dL (12.0-16.0); LYMPHOCYTES # (AUTO) 3.6 K/uL (2.5-16.5); LYMPHOCYTES % (AUTO) 24.9 % (20.5-51.1); MEAN CORPUSCULAR HEMOGLOBIN 31 pg (27-31); MEAN CORPUSCULAR HGB CONC 34 g/dL (33-37); MEAN CORPUSCULAR VOLUME 92.1 fL (80-94); MONOCYTES # (AUTO) 0.5 K/uL (0.8-1.0); MONOCYTES % (AUTO) 3.1 % (1.7-9.3); NEUTROPHILS # (AUTO) 10.3 K/uL (1.8-7.7); PLATELET COUNT (AUTO) 246 K/uL (140-450); RED BLOOD CELL COUNT(AUTO) 4.93 MIL/uL (4.20-5.40); RED CELL DISTRIBUTION WIDTH 14.2 % (11.6-13.7); WHITE BLOOD COUNT (AUTO) 14.6 K/uL (4.8-10.8)
[2019-10-05 22:30] LABS: ALBUMIN 4.2 g/dL (3.4-5.0); ANION GAP 20.5 (8-16); CARBON DIOXIDE 21.3 mmol/L (21-32); POTASSIUM 3.8 mmol/L (3.5-5.1); PROTHROMBIN TIME 9.9 secs (10.8-13.4); TOTAL BILIRUBIN 0.4 mg/dL (0.0-1.0)
--- NOTE | 2019-10-05 23:10 | NUR ---
PT TAKEN TO CT VIA BED.
[2019-10-05 23:34] LABS: BARBITURATE, URINE NEGATIVE ng/ml (NEG <=200); BENZODIAZEPINE, URINE NEGATIVE ng/mL (NEG <=200); CANNABINOID, URINE POSITIVE ng/mL (NEG <=50); COCAINE, URINE NEGATIVE ng/mL (NEG <=300); OPIATE, URINE NEGATIVE ng/mL (NEG <=2000); PHENCYCLIDINE SCREEN,URINE NEGATIVE ng/mL (NEG <=25)
--- NOTE | 2019-10-06 00:18 | NUR ---
PT IN BED ASLEEP. VISIBLE CHEST RISE AND FALL. AROUSABLE TO VOICE. NO FURTHER NEEDS AT THIS TIME. BED LOWEST AND LOCKED, RAILS X 2. CARDIAC MONITORING.
--- NOTE | 2019-10-06 01:43 | NUR ---
pt in bed asleep. visible chest rise and fall. safety/seizure precautions in place. no further needs at this time.
--- NOTE | 2019-10-06 03:00 | NUR ---
AMBULATED PT TO RESTROOM, PROVIDED WITH CLEAN GOWN AND SCRUB PANTS. RETURNED TO BED WITHOUT INCIDENT.
--- NOTE | 2019-10-06 03:53 | NUR ---
PT IN BED ASLEEP. VISIBLE CHEST RISE AND FALL. NO FURTHER NEEDS
[2019-10-06 04:28] VITALS: BP 124/68
--- NOTE | 2019-10-09 07:59 | NUR ---
LATE ENTRY- NORMAL SALINE 0.9% IV FLUIDS DISCONTINUED AT 0613.
== END 2019-10-06 06:13 | disposition home or self-care (01) ==
LOC: MED 21:05 → EEVIPCON 21:05 → MED 10-06 06:13
DX: F10.129 Alcohol abuse with intoxication, unspecified (principal); F41.9 Anxiety disorder, unspecified; G40.909 Epilepsy, unspecified, not intractable, without status epilepticus; I10 Essential (primary) hypertension; I42.9 Cardiomyopathy, unspecified; Z88.1 Allergy status to other antibiotic agents
CPT/HCPCS: 36415; 70450; 80053; 80305; 85025; 85610; 85730; 96372; 99284; G0482; J2060; J3486; J7030

== ENCOUNTER 2019-10-08 09:34 | Emergency (ER) | payer SELFPAY ==
[~2019-10-08] VITALS: Ht 165.1 cm; Wt 68.0 kg
[2019-10-08 09:49] VITALS: BP 151/90
--- NOTE | 2019-10-08 10:03 | NUR ---
59/F BIB SELF C/O BRUISE PERIOBITAL EYES , HEADACHE 10/10 X TODAY. HX: ALCOHOL INTOXICATION & HEAD INJURY 10/05/19. DENIES N/V AT THIS TIME. PT HAD COVID TESTED POSITIVE 08/18/19 & REPETED 2 WEEKS AGO NEGATIVE. MED HX: HTN, EPILEPSY, ANXIETY, CARDIOMYOPATHY, MDD
--- NOTE | 2019-10-08 10:15 | NUR ---
PT AMBUALTED TO ER BED 06
[2019-10-08] MEDS ORDERED: HYDROcodone/APAP 10/325 MG 1 TAB TAB PO ONE (10:35)
--- NOTE | 2019-10-08 11:18 | NUR ---
PT TO CT SCAN VIA WHEELCHAIR.
[2019-10-08 11:21] LABS: BARBITURATE, URINE NEGATIVE ng/ml (NEG <=200); BENZODIAZEPINE, URINE POSITIVE ng/mL (NEG <=200); CANNABINOID, URINE POSITIVE ng/mL (NEG <=50); COCAINE, URINE NEGATIVE ng/mL (NEG <=300); OPIATE, URINE NEGATIVE ng/mL (NEG <=2000); PHENCYCLIDINE SCREEN,URINE NEGATIVE ng/mL (NEG <=25)
--- NOTE | 2019-10-08 11:26 | NUR ---
PT BACK FROM CT SCAN.
[2019-10-08 12:12] VITALS: BP 151/89
--- NOTE | 2019-10-08 12:13 | NUR ---
Patient discharged with v/s stable. Written and verbal after care instructions given and explained regarding truamtic brain injury. Patient alert, oriented and verbalized understanding of instructions. Ambulatory with steady gait. All questions addressed prior to discharge. ID band removed. Patient advised to follow up with PMD. Rx of norco given. Patient educated on indication of medication including possible reaction and side effects. Opportunity to ask questions provided and answered.
== END 2019-10-08 12:13 | disposition home or self-care (01) ==
LOC: MED 09:34
DX: S06.0X0A Concussion without loss of consciousness, initial encounter (principal); I10 Essential (primary) hypertension; Z88.1 Allergy status to other antibiotic agents; W19.XXXA Unspecified fall, initial encounter; Y93.89 Activity, other specified; Y92.89 Other specified places as the place of occurrence of the external cause; Y99.8 Other external cause status
CPT/HCPCS: 70450; 80305; 99284

== ENCOUNTER 2019-10-23 10:39 | Emergency (ER) | payer SELFPAY ==
[~2019-10-23] VITALS: Ht 165.1 cm; Wt 82.3 kg
[2019-10-23 10:53] VITALS: BP 150/84
--- NOTE | 2019-10-23 11:00 | NUR ---
C/O ITCHY RASH TO L POSTERIOR THIGH X 2 WEEKS. PT DENIES FEVER/PAIN, USE OF NEW CREAMS/LOTION. REDNESS NOTED TO BACK OF THIGH. BED IN LOW POSITION, SIDE RAIL UP X1.
--- NOTE | 2019-10-23 11:05 | NUR ---
DR. TRIPP AT BEDSIDE
--- NOTE | 2019-10-23 11:29 | NUR ---
Patient discharged with v/s stable. Written and verbal after care instructions given and explained. Patient alert, oriented and verbalized understanding of instructions. Ambulatory with steady gait. All questions addressed prior to discharge. ID band removed. Patient advised to follow up with PMD. Rx of BENADRYL & PREDNISONE given. Patient educated on indication of medication including possible reaction and side effects. Opportunity to ask questions provided and answered.
[2019-10-23 11:30] VITALS: BP 150/84
== END 2019-10-23 11:29 | disposition home or self-care (01) ==
LOC: MED 10:39 → EEVIPCON 10:39 → MED 11:29
DX: L50.9 Urticaria, unspecified (principal); I10 Essential (primary) hypertension; Z88.1 Allergy status to other antibiotic agents
CPT/HCPCS: 99283

== ENCOUNTER 2019-12-11 09:15 | Emergency (ER) | payer MEDICAID ==
[~2019-12-11] VITALS: Ht 165.1 cm; Wt 81.6 kg
--- NOTE | 2019-12-11 09:19 | NUR ---
PT AMBULATED TO ER BED 02
[2019-12-11 09:25] VITALS: BP 162/85
--- NOTE | 2019-12-11 09:32 | NUR ---
59 YEAR OLD FEMALE COMPLAINS OF SHORTNESS OF BREATHE SINCE MORNING. PT STATES THAT SHE WAS UPSET IN THE MORNING AND STARTED TO FEEL SOB AND THEN USED INHALER BUT DOES NOT WORK. PT STATES SHE HAD COVID AND PNEUMONIA A COUPLE OF MONTHS AGO AND SOMETIMES WOULD FEEL SOB. RR 14, SPO2 98% ON RA. PT AOX4, BREATHING EVEN AND UNLABORED, SKIN WARM AND DRY. BED IN LOWEST POSITION, LOCKED, BED RAIL UPX1. PMH - HTN, ANXIETY, EPILEPSY, INVERTED T WAVE ALLERGIES- ERYTHROMYCIN
--- NOTE | 2019-12-11 10:40 | NUR ---
Patient discharged with v/s stable. Written and verbal after care instructions about anxiety and panic attacks and shortness of breathe given and explained. Patient alert, oriented and verbalized understanding of instructions. Ambulatory with steady gait. All questions addressed prior to discharge. ID band removed. Patient advised to follow up with PMD. Rx of ativan given. Patient educated on indication of medication including possible reaction and side effects. Opportunity to ask questions provided and answered.
[2019-12-11 10:46] VITALS: BP 162/85
[2019-12-11] MEDS ORDERED: ATROPINE 1 MG/10 ML SYR IVP ONE (10:57)
== END 2019-12-11 10:40 | disposition home or self-care (01) ==
LOC: MED 09:15
DX: F41.9 Anxiety disorder, unspecified (principal); I10 Essential (primary) hypertension; F17.200 Nicotine dependence, unspecified, uncomplicated; G40.909 Epilepsy, unspecified, not intractable, without status epilepticus; Z88.1 Allergy status to other antibiotic agents
CPT/HCPCS: 71045; 99283; Q0092; J0461

== ENCOUNTER 2020-09-24 06:05 | Emergency (ER) | payer MEDICAID, OTHER ==
[~2020-09-24] VITALS: Ht 165.1 cm; Wt 83.9 kg
--- NOTE | 2020-09-24 06:05 | NUR ---
BIBA BLS TO ER BED 2
--- NOTE | 2020-09-24 06:10 | NUR ---
SEE COMPLETE ASSESSMENT
[2020-09-24 06:13] VITALS: BP 146/89
[2020-09-24] MEDS ORDERED: PENICILLIN V POTASSIUM 250 MG TAB PO ONE ×2 (06:35→06:40)
[2020-09-24] MEDS ORDERED: KETOROLAC 30 MG/ML VIAL IM ONE ×2 (06:35→06:40)
[2020-09-24] MEDS ORDERED: KETO10TA2 PO (06:38)
[2020-09-24] MEDS ORDERED: PENI-321 PO (06:38)
[2020-09-24] MEDS ORDERED: KETOROLAC 30 MG/ML VIAL ONE (06:43)
--- NOTE | 2020-09-24 07:05 | NUR ---
Patient discharged with v/s stable. Written and verbal after care instructions given and explained. Patient alert, oriented and verbalized understanding of instructions. Ambulatory with steady gait. All questions addressed prior to discharge. ID band removed. Patient advised to follow up with PMD. Rx of TORADOL AND PENICILLIN given. Patient educated on indication of medication including possible reaction and side effects. Opportunity to ask questions provided and answered.
== END 2020-09-24 07:05 | disposition home or self-care (01) ==
LOC: MED 06:05
DX: J03.90 Acute tonsillitis, unspecified (principal); I10 Essential (primary) hypertension; Z88.1 Allergy status to other antibiotic agents
CPT/HCPCS: 87081; 96372; 99283; J1885

== ENCOUNTER 2020-09-27 02:05 | Emergency (ER) | payer OTHER ==
[~2020-09-27] VITALS: Ht 170.2 cm; Wt 88.5 kg
[2020-09-27 02:05] VITALS: BP 152/75
[~2020-09-27 02:05] MED LIST changes: -GABA100C PO; +KETO10TA2 PO; +PENI-321 PO
--- NOTE | 2020-09-27 02:05 | NUR ---
PT BIBA TO BED 6
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
[2020-09-27] MEDS ORDERED: KETOROLAC 30 MG/ML VIAL IVP ONE (02:15)
[2020-09-27] MEDS ORDERED: NACL 0.9% 1,000 ML IV ONE (02:15)
[2020-09-27] MEDS ORDERED: cefTRIAXone 2,000 MG in DEXTROSE 5% 100 ML IV ONE (02:15)
[2020-09-27] MEDS ORDERED: methylPREDNISolone SS 125 MG in WATER STERILE 2 ML IV ONE (02:15)
[2020-09-27] MEDS ORDERED: WATER STERILE 10 ML MC ONE (02:34)
[2020-09-27] MEDS ORDERED: cefTRIAXone 2,000 MG VIAL ONE (02:34)
[2020-09-27] MEDS ORDERED: methylPREDNISolone SS 125 MG/2 ML VIAL ONE (02:34)
--- NOTE | 2020-09-27 02:55 | NUR ---
Dr. Luis examining patient.
[2020-09-27] MEDS ORDERED: LEVO500T98 PO (04:44)
[2020-09-27 04:51] VITALS: BP 152/75
--- NOTE | 2020-09-27 04:51 | NUR ---
Patient discharged with v/s stable. Written and verbal after care instructions given and explained. Patient alert, oriented and verbalized understanding of instructions. Ambulatory with steady gait. All questions addressed prior to discharge. ID band AND IV ACCESS removed. Patient advised to follow up with PMD. Rx of LEVOFLOXACIN given. Patient educated on indication of medication including possible reaction and side effects. Opportunity to ask questions provided and answered.
== END 2020-09-27 04:51 | disposition home or self-care (01) ==
LOC: MED 02:05
DX: J02.0 Streptococcal pharyngitis (principal); I10 Essential (primary) hypertension; F12.90 Cannabis use, unspecified, uncomplicated; Z98.890 Other specified postprocedural states; Z90.49 Acquired absence of other specified parts of digestive tract; Z90.710 Acquired absence of both cervix and uterus; Z88.1 Allergy status to other antibiotic agents; Z79.899 Other long term (current) drug therapy
CPT/HCPCS: 36415; 87040; 96365; 96375; 99284; J0696; J1885; J2930; J7030

== ENCOUNTER 2020-10-28 09:17 | Emergency (ER) | payer OTHER ==
[~2020-10-28] VITALS: Ht 162.6 cm; Wt 72.6 kg
[~2020-10-28 09:17] MED LIST changes: +LEVO500T98 PO
--- NOTE | 2020-10-28 09:18 | NUR ---
shorty GUZMAN via gurney to bed 07.
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
--- NOTE | 2020-10-28 09:22 | NUR ---
Dr. George at the bedside evaluating patient.
[2020-10-28 09:24] VITALS: BP 157/85
[2020-10-28] MEDS ORDERED: OXcarbazepine 150 MG TAB PO SCH (09:25)
--- NOTE | 2020-10-28 09:58 | NUR ---
Spoke to Faith at the pharmacy about the Trileptal. Per Faith, will send the medication.
[2020-10-28 10:48] VITALS: BP 157/85
== END 2020-10-28 10:48 | disposition home or self-care (01) ==
LOC: MED 09:17
DX: R56.9 Unspecified convulsions (principal); I10 Essential (primary) hypertension; Z79.899 Other long term (current) drug therapy; Z88.1 Allergy status to other antibiotic agents
CPT/HCPCS: 93005; 99283

== ENCOUNTER 2020-11-24 19:11 | Emergency (ER) | payer OTHER ==
--- NOTE | 2020-11-24 20:02 | NUR ---
PT CALLED IN LOBBY AND OUTSIDE WITH NO ANSWER.
--- NOTE | 2020-11-24 20:10 | NUR ---
PT CALLED IN LOBBY AND OUTSIDE WITH NO ANSWER.
--- NOTE | 2020-11-24 20:15 | NUR ---
PT CALLED IN LOBBY AND OUTSIDE WITH NO ANSWER. PATIENT LEFT WITHOUT BEING SEEN BY DR. VENTURA. NO FURTHER CARE PROVIDED FOR PATIENT.
== END 2020-11-24 20:02 | disposition left against medical advice (07) ==
LOC: MED 19:11
DX: M54.9 Dorsalgia, unspecified (principal); Z53.21 Procedure and treatment not carried out due to patient leaving prior to being seen by health care provider

== ENCOUNTER 2021-10-06 10:12 | Emergency (ER) | payer OTHER ==
[~2021-10-06] VITALS: Ht 165.1 cm; Wt 82.6 kg
[~2021-10-06 10:12] MED LIST changes: +LEVO-315 PO; -LEVO500T98 PO
[2021-10-06 10:15] VITALS: BP_SYST 133; BP_SYST 170; BP_DIAS 87; BP_DIAS 94
--- NOTE | 2021-10-06 10:51 | NUR ---
FLU AND STEVE SWABS COLLECTED AND HANDED TO [employer]IC[employer] SUPERVISOR ROBBIE
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
[2021-10-06] MEDS: predniSONE 20 MG TAB PO ONE (11:02)
[2021-10-06] MEDS: ALBUTEROL HFA MDI 90 MCG/ACTUATION 8 GM INH ONE (11:08)
--- NOTE | 2021-10-06 11:08 | NUR ---
ALBUTEROL SULFATE INHALER VIA SPACER GIVEN ORDERED
--- NOTE | 2021-10-06 11:11 | NUR ---
PATIENT TAKEN TO XRAY VIA W/C
[2021-10-06] MEDS ORDERED: SPAC1DEV10 MC (11:46)
[2021-10-06] MEDS ORDERED: PRED20TA5 PO (11:46)
[2021-10-06] MEDS ORDERED: NAPR-1704 PO (11:46)
[2021-10-06] MEDS ORDERED: ALBU0.0912 IH (11:46)
--- NOTE | 2021-10-06 12:51 | NUR ---
LEFT W/O D/C WORK/INSTRUCTIONS
== END 2021-10-06 12:50 | disposition home or self-care (01) ==
LOC: MED 10:12
DX: B34.9 Viral infection, unspecified (principal); Z20.822 Contact with and (suspected) exposure to COVID-19; J98.01 Acute bronchospasm; F12.90 Cannabis use, unspecified, uncomplicated; I10 Essential (primary) hypertension; F32.9 Major depressive disorder, single episode, unspecified; Z86.69 Personal history of other diseases of the nervous system and sense organs; Z90.49 Acquired absence of other specified parts of digestive tract; Z90.710 Acquired absence of both cervix and uterus; Z98.890 Other specified postprocedural states; Z98.51 Tubal ligation status; Z79.899 Other long term (current) drug therapy; Z79.1 Long term (current) use of non-steroidal anti-inflammatories (NSAID); Z79.2 Long term (current) use of antibiotics; Z88.1 Allergy status to other antibiotic agents
CPT/HCPCS: 71045; 81002; 81025; 87426; 87804; 94664; 99284; J7512

== ENCOUNTER 2022-01-27 18:49 | Emergency (ER) | payer OTHER ==
[~2022-01-27] VITALS: Ht 162.6 cm; Wt 74.8 kg
[~2022-01-27 18:49] MED LIST changes: +ALBU0.0912 IH; -LEVO-315 PO; +LEVO-481 PO; +NAPR-1704 PO; +PRED20TA5 PO; +SPAC1DEV10 MC
[2022-01-27 18:54] VITALS: BP 183/88
[2022-01-27] MEDS ORDERED: FLUORESCEIN OPTH STRIP 1 MG OP ONE (19:10)
[2022-01-27] MEDS ORDERED: TETRACAINE HCL/PF 0.5% OPTH 4 ML BTL OP ONE (19:10)
--- NOTE | 2022-01-27 19:21 | NUR ---
PATIENT NOT FOUND IN THE ROOM AT THIS TIME. WILL AWAIT FOR PATIENT.
--- NOTE | 2022-01-27 19:31 | NUR ---
PATIENT STILL NOT FOUND IN THE ROOM. ER MD MADE AWARE.
--- NOTE | 2022-01-27 20:02 | NUR ---
19:51 CALLED NUMBER PROVIDED BY THE SYSTEM. JANIA DRIVER ANSWERED AND WAS NOT AWARE PT WAS IN THE ER. SON THEN PROVIDED PT'S NUMBER [phone]. 19:53 CALLED THE PROVIDED # BY SON. NO ANSWER AT THIS TIME. ER MADE AWARE.
--- NOTE | 2022-01-27 21:58 | NUR ---
19:53 PATIENT ELOPED FROM FACILITY. DISCHARGE INSTRUCTIONS NOT GIVEN TO PATIENT. DR. VILLAGRAN NOTIFIED.
== END 2022-01-27 21:58 | disposition left against medical advice (07) ==
LOC: MED 18:49
DX: H57.11 Ocular pain, right eye (principal); Z53.21 Procedure and treatment not carried out due to patient leaving prior to being seen by health care provider

== ENCOUNTER 2022-11-06 09:13 | Emergency (ER) | payer OTHER ==
--- NOTE | 2022-11-06 09:20 | NUR ---
called pt in lobby and outside without answer.
--- NOTE | 2022-11-06 09:30 | NUR ---
called pt name in lobby and outside lobby without a response
== END 2022-11-06 09:30 | disposition left against medical advice (07) ==
LOC: MED 09:13
DX: S61.219A Laceration without foreign body of unspecified finger without damage to nail, initial encounter (principal); Z53.21 Procedure and treatment not carried out due to patient leaving prior to being seen by health care provider; X58.XXXA Exposure to other specified factors, initial encounter; Y93.89 Activity, other specified; Y92.89 Other specified places as the place of occurrence of the external cause; Y99.8 Other external cause status

== ENCOUNTER 2022-12-16 15:02 | Inpatient (IN) | payer OTHER ==
[~2022-12-16] VITALS: Ht 165.1 cm; Wt 90.7 kg
[2022-12-16 15:06] VITALS: BP 152/88; PULSE 78; RESP 16; TEMP 97.6; O2SAT 95
[2022-12-16] MEDS ORDERED: NACL 0.9% 1,000 ML IV SCH ×2 (15:15→18:40)
[2022-12-16 16:30] LABS: BASOPHILS % (AUTO) 0.3 % (0.0-2.0); EOSINOPHILS # (AUTO) 0.1 K/uL (0-0.4); EOSINOPHILS % (AUTO) 0.4 % (0.0-4.0); HEMATOCRIT 40.5 % (36-48); HEMOGLOBIN 13.7 g/dL (12.0-16.0); LYMPHOCYTES # (AUTO) 2.9 K/uL (2.5-16.5); LYMPHOCYTES % (AUTO) 15.7 % (20.5-51.1); MEAN CORPUSCULAR HEMOGLOBIN 29 pg (27-31); MEAN CORPUSCULAR HGB CONC 34 g/dL (33-37); MEAN CORPUSCULAR VOLUME 86.9 fL (80-94); MONOCYTES # (AUTO) 0.6 K/uL (0.8-1.0); MONOCYTES % (AUTO) 3.1 % (1.7-9.3); NEUTROPHILS # (AUTO) 14.8 K/uL (1.8-7.7); NEUTROPHILS % (AUTO) 80.5 % (42.2-75.2); PLATELET COUNT (AUTO) 233 K/uL (140-450); RED BLOOD CELL COUNT(AUTO) 4.66 MIL/uL (4.20-5.40); RED CELL DISTRIBUTION WIDTH 12.7 % (11.6-13.7); WHITE BLOOD COUNT (AUTO) 18.4 K/uL (4.8-10.8)
[2022-12-16] MEDS ORDERED: QUET50TA15 PO (16:31)
[2022-12-16] MEDS ORDERED: IBUP-2217 PO (16:31)
[2022-12-16] MEDS ORDERED: ALBUTEROL (16:31)
[2022-12-16] MEDS ORDERED: DIVA500T37 PO (16:31)
[2022-12-16] MEDS ORDERED: AMOX500C25 PO (16:31)
[2022-12-16] MEDS ORDERED: ONDANSETRON 4 MG/2 ML VIAL IVP ONE (16:40)
[2022-12-16] MEDS ORDERED: MORPHINE SULFATE 4 MG/ML SYR IVP ONE (16:40)
[2022-12-16 16:53] LABS: ALBUMIN 3.6 g/dL (3.4-5.0); ANION GAP 14.8 (8-16); CALCIUM 8.4 mg/dL (8.5-10.1); CARBON DIOXIDE 25.9 mmol/L (21-32); CREATININE 0.9 mg/dL (0.6-1.3); POTASSIUM 3.7 mmol/L (3.5-5.1); TOTAL BILIRUBIN 0.5 mg/dL (0.0-1.0); TOTAL PROTEIN, SERUM 6.7 g/dL (6.4-8.2)
[2022-12-16 18:15] VITALS: BP 142/84; PULSE 76; RESP 18; TEMP 97.6; O2SAT 96
[2022-12-16] MEDS ORDERED: KCL 20 MEQ IN 100 mL PREMIX 200 ML IV PRN (18:40)
[2022-12-16] MEDS ORDERED: MAG SULF 2000 MG/WATER PREMIX 50 ML IV PRN (18:40)
[2022-12-16] MEDS ORDERED: ACETAMINOPHEN 325 MG TAB PO PRN (18:40)
[2022-12-16] MEDS ORDERED: MAGNESIUM OXIDE 400 MG TAB PO PRN (18:40)
[2022-12-16] MEDS ORDERED: HYDROcodone/APAP 5/325 MG 1 TAB TAB PO PRN (18:40)
[2022-12-16] MEDS ORDERED: MORPHINE SULFATE 4 MG/ML SYR IVP PRN (18:40)
[2022-12-16] MEDS ORDERED: POTASSIUM CHLORIDE 10 MEQ TABER PO PRN (18:40)
[2022-12-16] MEDS ORDERED: ONDANSETRON 4 MG/2 ML VIAL IVP PRN (18:40)
== END 2022-12-16 18:43 | disposition left against medical advice (07) | DRG 282 ==
LOC: MED 15:02 → MMU 18:43
PROVIDERS: ADMIT Hospitalist; ATTEND Hospitalist
DX: K85.90 Acute pancreatitis without necrosis or infection, unspecified (principal); G40.909 Epilepsy, unspecified, not intractable, without status epilepticus; Z88.8 Allergy status to other drugs, medicaments and biological substances; Z79.899 Other long term (current) drug therapy; Z90.49 Acquired absence of other specified parts of digestive tract
CPT/HCPCS: 36415; 80053; 82150; 83690; 85025; 96361; 96374; 96375; 99285; J2270; J2405

== ENCOUNTER 2023-03-02 10:42 | Emergency (ER) | payer OTHER ==
[~2023-03-02] VITALS: Ht 165.1 cm; Wt 88.5 kg
[~2023-03-02 10:42] MED LIST changes: +ALBUTEROL; +AMOX500C25 PO; +DIVA500T37 PO; +IBUP-2217 PO; +QUET50TA15 PO
[2023-03-02 11:07] VITALS: BP 163/99; PULSE 82; RESP 19; TEMP 98.4; O2SAT 99
[2023-03-02 11:40] LABS: APPEARANCE,URINE CLEAR (CLEAR); BILIRUBIN,URINE NEGATIVE (NEGATIVE); BLOOD, URINE NEGATIVE (NEGATIVE); COLOR,URINE YELLOW (YELLOW); LEUKOCYTE ESTERASE ,URINE NEGATIVE (NEGATIVE); NITRITE, URINE NEGATIVE (NEGATIVE); PROTEIN,URINE NEGATIVE (NEGATIVE); UGLUCOSE NEGATIVE (NEGATIVE); UROBILINOGEN,URINE 0.2 EU/dL (0.2 - 1)
[2023-03-02] MEDS ORDERED: LOTC TP (12:59)
[2023-03-02 13:04] VITALS: BP 163/99; PULSE 82; RESP 19; TEMP 98.4; O2SAT 99
[2023-03-02] MEDS ORDERED: METR-435 PO (17:46)
== END 2023-03-02 13:04 | disposition home or self-care (01) ==
LOC: MED 10:42
DX: A59.01 Trichomonal vulvovaginitis (principal); B35.6 Tinea cruris; I10 Essential (primary) hypertension; Z88.8 Allergy status to other drugs, medicaments and biological substances; Z79.899 Other long term (current) drug therapy
CPT/HCPCS: 81003; 87210; 87491; 99284

== ENCOUNTER 2023-05-29 10:42 | Emergency (ER) | payer OTHER ==
[~2023-05-29] VITALS: Ht 165.1 cm; Wt 90.7 kg
[~2023-05-29 10:42] MED LIST changes: +LOTC TP; +METR-435 PO
[2023-05-29 10:56] VITALS: BP 164/96; PULSE 82; RESP 16; TEMP 98; O2SAT 99
== END 2023-05-29 12:18 | disposition home or self-care (01) ==
LOC: MED 10:42
DX: S63.501A Unspecified sprain of right wrist, initial encounter (principal); S80.02XA Contusion of left knee, initial encounter; S80.01XA Contusion of right knee, initial encounter; I10 Essential (primary) hypertension; I48.91 Unspecified atrial fibrillation; Z90.49 Acquired absence of other specified parts of digestive tract; Z90.710 Acquired absence of both cervix and uterus; Z98.51 Tubal ligation status; Z79.899 Other long term (current) drug therapy; Z88.1 Allergy status to other antibiotic agents; W01.0XXA Fall on same level from slipping, tripping and stumbling without subsequent striking against object, initial encounter; Y93.01 Activity, walking, marching and hiking; Y92.89 Other specified places as the place of occurrence of the external cause; Y99.8 Other external cause status
CPT/HCPCS: 73110; 73560; 73562; 99284

== ENCOUNTER 2023-11-17 11:23 | Emergency (ER) | payer OTHER ==
[~2023-11-17] VITALS: Ht 165.1 cm; Wt 90.7 kg
[~2023-11-17 11:23] MED LIST changes: +INHA1SPA89 MC; -SPAC1DEV10 MC
[2023-11-17 11:34] VITALS: BP 161/83; PULSE 89; RESP 18; TEMP 99.3; O2SAT 95
== END 2023-11-17 14:18 | disposition left against medical advice (07) ==
LOC: MED 11:23
DX: R51.9 Headache, unspecified (principal); R19.7 Diarrhea, unspecified; R53.1 Weakness; I10 Essential (primary) hypertension; I48.91 Unspecified atrial fibrillation; Z53.21 Procedure and treatment not carried out due to patient leaving prior to being seen by health care provider